=== PATIENT | female | born 1995 | race Hispanic/Latino ===

== ENCOUNTER 2018-02-26 13:04 | Emergency (ER) | payer BC, OTHER ==
[2018-02-26 14:59] LABS: Bilirubin Negative (Negative); Blood, Urine Negative (Negative); Clarity CLEAR (Clear); Glucose, Urine (Dipstick) Negative (Negative); Leukocyte Negative (Negative); Nitrite Negative (Negative); Protein, Urine (Dipstick) Negative (Neg-Trace); Urobilinogen 0.2 mg/dL (0.2-1.0)
[2018-02-26 15:55] LABS: Bacteria/HPF None Seen HPF (None Seen); Hyaline Casts/LPF NONE SEEN LPF (0-3 Hyaline); RBC/HPF None Seen HPF (0-3); Squamous Epithelial 0-3 HPF (0-3); WBC/HPF None Seen HPF (0-3)
--- NOTE | 2018-02-26 16:52 | ULT ---
OBSTETRIC SONOGRAM TRANSABDOMINAL AND TRANSVAGINAL IMAGING: Date: 02/26/18 HISTORY: Pelvic pain. Early . FINDINGS: Gestational sac within the endometrial cavity contains a yolk sac and pole. Fishhook-rump length c orrelates with 8 weeks/4 days gestational age. No heart motion was visualized. Small subchorion ic hematoma. No free fluid within the pelvis. Right ovary is 2.1 cm and left is 2.2 cm. Corpus luteum . Good color and spectral Doppler flow within each ovary. IMPRESSION: Intrauterine demise. 8 weeks/4 days size. POS: [facility]
== END 2018-02-26 18:22 | disposition home or self-care (01) ==
LOC: ERS 13:04
DX: O20.0 Threatened abortion (principal); O99.341 Other mental disorders complicating pregnancy, first trimester; F41.9 Anxiety disorder, unspecified; F31.9 Bipolar disorder, unspecified
CPT/HCPCS: 76856; 81001; 84702